=== PATIENT | female | born 1945 | race Caucasian/White ===

== ENCOUNTER 2023-06-17 10:55 | Outpatient (REF) | payer MEDICARE, OTHER, SELFPAY ==
--- NOTE | ~2023-06-17 | MR_ITS ---
EXAMINATION: INCOMPLETE MR BRAIN WITHOUT CONTRAST CLINICAL INFORMATION: Dementia. COMPARISON: None. TECHNIQUE: Multiplanar, multisequence imaging of the brain was performed without contrast. No coronal T2 FLAIR imaging acquired. Patient became restless and could not finish the study. Limited examination with motion artifacts. FINDINGS: No diffusion abnormalities are identified to suggest an acute infarct. No mass effect or midline shift is seen. Moderate to severe diffuse parenchymal volume loss noted, particularly affecting the frontoparietal lobes. Ex vacuo dilatation of the ventricles evident as well. Mild chronic white matter microangiopathic changes noted. No extra-axial fluid collections are seen. The brainstem and cerebellum are normal. The gradient refocused acquisition demonstrates no pathologic magnetic susceptibility artifact to indicate underlying acute or chronic blood products. The craniovertebral junction, marrow signal, and midline structures are normal. The major intracranial flow voids at the level of the [place] are preserved. The dural venous sinus flow voids are maintained. The mastoid air cells and paranasal sinuses are well aerated. MR/MR head/brain wo con IMPRESSION: Moderate diffuse parenchymal volume loss, particularly affecting the temporoparietal lobes, with mild chronic white matter microangiopathy. No acute process.
== END 2023-06-17 10:56 | disposition home or self-care (01) ==
LOC: HO.MRI 10:55
PROVIDERS: Visit Provider Psychiatry & Neurology Neurology
DX: G30.9 Alzheimer's disease, unspecified (principal)
CPT/HCPCS: 70551

== ENCOUNTER 2025-05-29 15:38 | Outpatient (AMB) | payer MEDICARE, OTHER, SELFPAY ==
--- NOTE | 2025-05-29 15:42 | A.OFFVIS_ITS ---
Intake Visit Reasons: 6 mnts f/u Allergies No Known Allergies Allergy (Verified 05/23/25 09:24) Medication List - Last Reconciled 05/29/25 by Justin Maciel MD atorvastatin 10 mg PO DAILY donepezil 10 mg PO BEDTIME memantine 10 mg PO BID quetiapine 25 mg PO DAILY sertraline 50 mg PO DAILY HPI Comments Details: 79 years old left-handed woman with probably Alzheimer type dementia. She started having short-term memory problems around 2009. They consulted [facility] and [facility] in [place] where she was going until 2022 when I saw her. Apparently she participated in her dementia trial for few years. Details were not known to me. Over the years, her situation worsened. She was primarily cared by her . [facility] Medical History (Updated 05/29/25 @ 15:58 by Justin Maciel MD) Alzheimer dementia Severe dementia Anxiety Review of Systems Const Details: Constitutional:?No fever, chills, fatigue, weight loss, or night sweats. HEENT:?No headache, vision changes, hearing loss, nasal congestion, sore throat. Neurological:? Forgetfulness Psychiatric:?No anxiety, depression, mood swings, sleep disturbance, or hallucinations. Endocrine:?No heat/cold intolerance, polydipsia, polyuria, or hair/skin changes. Hematologic/Lymphatic:?No easy bruising, bleeding, or lymphadenopathy. Integumentary (Skin):?No rash, lesions, itching, or color changes. ? Physical Exam Neuro Other: Mental Status: She is alert and awake with decreased spontaneity and fluency of speech. She frequently repeated what I said instead of answering the question. When asked about orientation questions, she did not know the year, month, date or her location. She identified her as her brother. Cranial Nerves: CN II: Visual roland full to confrontation, visual acuity intact. CN III, IV, : Pupils equal, round, reactive to light and accommodation. Extraocular movements are normal. CN V: Facial sensation is normal. CN VII: Facial movements symmetrical. CN VIII: Hearing intact to bedside conversation is normal. CN IX, X: Palate elevates symmetrically. CN XI: Shoulder shrug and head turn symmetrical. CN XII: Tongue midline without atrophy or fasciculations. Extrapyramidal: Full facial expressions and blinking. No rigidity. Movements are appropriate with no tremor or abnormality. Speech: Normal; no dysarthria or tremor. Assessment & Plan Assessment & Plan (1) Alzheimer dementia: Comment: MRI brain WO at [facility] in May 2023: Mod to severe PT atrophy MRI brain WO at [facility] in [place] in 2013: Mild gen atrophy (reported though I don't see much atrophy), minimal MVD PET scan at [facility] in 2016: No report provided. CT part did not reveal much atrophy. Code(s): G30.9 - Alzheimer's disease, unspecified; F02.80 - Dementia in other diseases classified elsewhere, unspecified severity, without behavioral disturbance, psychotic disturbance, mood disturbance, and anxiety Category: Medical Qualifiers: Dementia severity: moderate Dementia behavioral or psychological symptom: with anxiety Alzheimer's disease onset: early onset Qualified Code(s): G30.0 - Alzheimer's disease with early onset; F02.B4 - Dementia in other diseases classified elsewhere, moderate, with anxiety Plan Impression: Moderately to severe likely Alzheimer type dementia, primarily cared by her . Rec: a: Donepezil 10mg a day b: Memantine 10mg bid c: Sertraline 50mg a day d: Quetiapine 25mg a day PRN for behavioral symptoms, which she has not taken lately Medications: New donepezil 10 mg PO BEDTIME 90 tabs 1RF sertraline 50 mg PO DAILY 90 tabs 1RF memantine 10 mg PO BID 180 tabs 1RF Coding Level of Care Code Tele Est Pt Level 4 (35910) Diagnoses Moderate early onset Alzheimer's dementia with anxiety G30.0; F02.B4 Dementia severity: moderate Dementia behavioral or psychological symptom: with anxiety Alzheimer's disease onset: early onset
--- OUTSIDE RECORDS SUMMARY | 2025-05-29 16:14 | XMS_ITS | Clinical Summary ---
Author Organization [facility] Address [address] [place] [phone] Phone Care Team Providers Care Ethylbenzene Oxidizer Name Role Phone Angie Moreau MD Primary Care Pr ovider Allergies Active Allergy Reactions Criticality Noted Date Comments Sulfa (Sulfonamide Antibiotics) Rash Low 01/17/2014 Pt unsure if she is still allergic Medications calcium carbonate-vitami n D3 (CALCIUM+D) 1,250 mg (500 mg elemental)-200 units per tablet 01/18/20 14 Active MV-MN/FA/VIT K/LYCOP/LUT/COQ1 0 (DAILY MULTIVITAMIN ORAL) 01/18/20 14 Active BORAGE, BORAGO OFFICINALIS, ORAL Take by mouth. Activ e DOCOSAHEXANOIC ACID (DHA ALGAL-900 ORAL) Take by mouth. Active ALPHA LIPOIC ACID, BULK, MISC 600 mg by Miscellaneous route. Active OMEGA-3 FATTY ACIDS/FISH OIL (OMEGA 3 FISH OIL ORAL) Take by mouth. Activ e LEVOCARNITINE TARTRATE (CARNITINE, TARTRATE, ORAL) Take by mouth. Active vitamin E 400 unit Cap Take by mouth daily. Active atorvastatin (LIPITOR) 10 MG tablet Take 10 mg by mouth daily. Active FOLIC ACID ORAL Take by mouth. Active ascorbic acid, vitamin C, (VITAMIN C) 500 MG tablet Take 500 mg by mouth daily. Active cholecalciferol, vitamin D3, (VITAMIN D3 ORAL) Take 1 tablet by mouth daily. Active b complex vitamins capsule Take 1 capsule by mouth daily. Active memantine (NAMENDA) 10 MG tablet TAKE 1 TABLET BY MOUTH TWICE A DAY 180 tablet 3 04/04/20 23 Active escitalopram oxalate (LEXAPRO) 10 MG tablet TAKE 1 TABLET BY MOUTH EVERY DAY 90 tablet 1 04/04/20 23 Active donepeziL (ARICEPT) 10 MG tablet TAKE 1 TABLET BY MOUTH EVERYDAY AT BEDTIME 90 tablet 1 09/27/20 23 Active Active Problems Problem Noted Date Diagnosed Date Late onset Alzheimer's disea se without behavioral disturbance 03/17/2018 Osteopenia 01/14/2016 Memory impairment 01/17/2014 Overview (12/20/2014): Memory impairment Family History Medical History Relation Comments Uncoded Family History Mother Memory im pairment Uncoded Family History Sister Memory im pairment Relation Status Comments Mother Sister Social History Tobacco Use Types Packs/Day Years Used Date Smoking Tobacco: Never Smokeless Tobacco: Never Education Answer Date Recorded Are you interested in more education? Not on jayme e 02/25/2023 Are you concerned about learning? Not on file 02/25/2023 No 02/25/2023 No 02/25/2023 Digital Access Answer Date Recorded No 03/27/2023 No 03/27/2023 No 03/27/2023 Reliable internet access at home? Not on file 03/27/2023 Device with a working camera? Not on file Comments Unknown Sex and Gender Information Value Date Recorded Sex Assigned at Not on file Legal Sex Female 3:16 PM EDT Gender Identity Not on file Sexual Orientation Not on file Last Filed Vital Signs Vital Sign Reading Time Taken Comments Blood Pressure 124/65 12/30/2021 2:59 PM EST Pulse 66 12/30/2021 2:59 PM EST Temperature 36.7 C (98 F) 12/30/2021 2:59 PM EST Respiratory Rate 16 12/30/2021 2:59 PM EST Oxygen Saturation 97% 12/30/2021 2:59 PM EST Inhaled Oxygen Concentration - - Weight 64.4 kg (142 lb) 12/30/2021 2:59 PM EST Height 160 cm (5' 3 ) 03/16/2021 2:12 PM EDT Body Mass Index 25.15 03/16/2021 2:12 PM EDT Plan of Treatment Health Maintenance Due Date Last Done Comments LIPID PANEL 1945 DEPRESSION SCREENING 1958 HEPATITIS C SCREENING 1964 ZOSTER VACCINES (2 of 3) 12/26/2010 10/31/2010, 07/02 OSTEOPOROSIS SCREENING INITIAL (ONE-TIME) 2011 Adult Td,Tdap Booster 07/24/2020 07/24/2010, 005 RSV VACCINE (1 - 1-dose 75+ series) 2021 COVID-19 VACCINE ( - season) 2024 02/24/2022, 08/19/2021, 02/16/2021, Additional history exists PNEUMOCOCCAL VACCINES (50+ years) Completed 09/12/2020, 06/29/2012 SMOKING STATUS SCREENING (Once After 26 Yrs) Completed 12/30/2021 HEPATITIS A VACCINES Aged Out No long er eligible based on patient's age to complete this topic HIB VACCINES Aged Out No longer eligi ble based on patient's age to complete this topic MENINGOCOCCAL VACCINES (ACWY) Aged Out No longer eligible based on patient's age to complete this topic MENINGOCOCCAL VACCINES (B) Aged Out N o longer eligible based on patient's age to complete this topic Medical Devices Not on file Insurance MEDICARE PART A & B Member Subscriber Plan / Payer (Ef fective 2011-Present) Name:Talisha Pennington Member ID:[id number] Relation to Subscriber:Self Name:Talisha Pennington Subscriber ID:[id number] Payer ID:[id number] Group ID:Not on file Type:Medicare [facility] [employer] [facility] [address] [facility] [place] [phone] [employer] MEDICARE SUPPLEMENT MEDICARE PART A & B [facility] [place] [phone] [employer] MEDICARE SUPPLEMENT MEDICARE PART A & B [facility] MEDICARE SUPPLEMENT MEDICARE PART A & B [employer] MEDICARE SUPPLEMENT MEDICARE PART A & B [facility] MEDICARE SUPPLEMENT MEDICARE PART A & B [employer] MED[employer] SUPPLEMENT MEDICARE PART A & B [employer] [place] [id number] MEDICARE PART A & B [facility] MEDICARE SUPPLEMENT Care Teams Ethylbenzene Oxidizer Relationship Specialty Start Date End Date Angie Moreau MD [address] [place] [address] [place] [id number] PCP - General Internal Medicine 06/20/14 Additional Source Comments The information contained in this document represents components of the legal health record. It is not the complete legal health record.[facility]
--- OUTSIDE RECORDS SUMMARY | 2025-05-29 16:14 | XMS_ITS ---
Author Name [facility] Organization Unknown History of Medication Use Medication Directions Dispensed Refills Start Date End Date Stat us benzonatate (TESSALON) 200 MG capsule Take 1 capsule (200 mg total) by mouth 3 (three) times a day as needed for cough. 11/16/2024 active proMETHAZINE-dextrome thorphan (proMETHAZINE-DM) 6.25-15 MG/5ML syrup Take 5 mL by mouth 4 times daily (every 6 hours) as needed for cough. 11/16/2024 active ascorbic acid (VITAMIN C) 500 MG tablet Take 500 mg by mouth daily. active memantine (NAMENDA) 10 MG tablet Take 10 mg by mouth 2 times a day. active sertraline (ZOLOFT) 50 MG tablet Take 50 mg by mouth. active vitamin B complex (b complex vitamins) capsule Take 1 capsule by mouth daily. active Allergies Allergen Reaction Severity Comment Documented Date Source Statu s SULFA ANTIBIOTICS RASH/DERMATITI S Pt unsure if she is still allergic 01/17/2014 CCT active Problems Problem Status Onset Date Problem Type Date of Resoluti on Source Acute bronchitis, unspecified organism active EncounterDiagnosisAct CCT Encounters Encounter Type Encounter Reason Primary Diagnosis Location Date Ambulatory [facility]24 Care Team Organization Name Specialty Phone Email Start Date End [facility] 12/06/2024 01/16/2025 [facility]16[facility]2024 [facility] NATASHA GAMBOA Primary Care 09/07/2022 06/18/2024
--- OUTSIDE RECORDS SUMMARY | 2025-05-29 16:15 | XMS_ITS | Clinical Summary ---
Author Organization [facility] Address [address] [place] [address] Care Team Providers Care Senior Technical Project Manager Name Role Phone Pcp, No Primary Care Provider Unavailabl e Allergies Active Allergy Reactions Criticality Noted Date Comments Sulfa Antibiotics Rash/Dermatitis Low 01/17/2014 Pt unsure if she is still allergic Medications ascorbic acid (VITAMIN C) 500 MG tablet Take 500 mg by mouth daily. Active atorvastatin (LIPITOR) 10 MG tablet Take 10 mg by mouth daily. 05/16/2024 Active vitamin B complex (b complex vitamins) capsule Take 1 capsule by mouth daily. Active donepezil (ARICEPT) 10 MG tablet TAKE 1 TABLET BY MOUTH EVERY DAY AT BEDTIME FOR 90 DAYS Active memantine (NAMENDA) 10 MG tablet Take 10 mg by mouth 2 times a day. Active QUEtiapine (SEROquel) 25 MG tablet 08/25/2024 Active sertraline (ZOLOFT) 50 MG tablet Take 50 mg by mouth. Active benzonatate (TESSALON) 200 MG capsuleIndicatio ns:Acute bronchitis, unspecified organism Take 1 capsule (200 mg total) by mouth 3 (three) times a day as needed for cough. 20 capsule 11/16/2024 Active proMETHAZINE-dex tromethorphan (proMETHAZINE-DM ) 6.25-15 MG/5ML syrupIndications :Acute bronchitis, unspecified organism Take 5 mL by mouth 4 times daily (every 6 hours) as needed for cough. 120 mL 11/16/2024 Active Active Problems No known active problems Social History Tobacco Use Types Packs/Day Years Used Date Smoking Tobacco: Never Assessed Comments Unknown Sex and Gender Information Value Date Recorded Sex Assigned at Not on file Legal Sex Female 4:20 PM EST Gender Identity Not on file Sexual Orientation Not on file Last Filed Vital Signs Vital Sign Reading Time Taken Comments Blood Pressure 116/63 11/16/2024 4:30 PM EST Pulse 70 11/16/2024 4:30 PM EST Temperature 36.6 C (97.9 F) 11/16/2024 4:30 PM EST Respiratory Rate 15 11/16/2024 4:30 PM EST Oxygen Saturation 96% 11/16/2024 4:30 PM EST Inhaled Oxygen Concentration - - Weight 68 kg (150 lb) 11/16/2024 4:30 PM EST Height 160 cm (5' 3 ) 11/16/2024 4:30 PM EST Body Mass Index 26.57 11/16/2024 4:30 PM EST Plan of Treatment Health Maintenance Due Date Last Done Comments Hepatitis C Virus Screening 1945 DTaP/Tdap/Td Vaccines (1 - Tdap) 1965 Pneumococcal Vaccines 50+ (1 of 1 - PCV) 1996 Zoster (Shingles) Vaccine (1 of 2) 1996 DXA Bone Density (Females,Ages 65 and older) 2011 RSV Vaccine 60 years and older and Patients (1 - 1-dose 75+ series) 2021 COVID-19 Vaccine ( season) 2024 02/16/2021, 01/26/2021 Influenza Vaccine 05/31/2025 09/01/2020, , 08/09/2019, Additional history exists Hepatitis B Vaccines Aged Out No long er eligible based on patient's age to complete this topic Insurance [place] [id number] MEDICARE PART A & B [facility] MEDICARE Care Teams Senior Technical Project Manager Relationship Specialty Start Date End Date Pcp, No PCP - General General Medicine 11/16/24
--- OUTSIDE RECORDS SUMMARY | 2025-05-29 16:15 | XMS_ITS | Clinical Summary ---
Author Organization [facility] [address] [facility] lding Address [address] [facility] [place] [phone] Phone Care Team Providers Care Mobile Lounge Driver Name Role Phone Angie Moreau MD Primary Care Prov ider Allergies Active Allergy Reactions Criticality Noted Date Comments Sulfa (Sulfonamide Antibiotics) Rash Low 01/17/2014 Pt unsure if she is still allergic Medications ALPHA LIPOIC ACID ORAL Take by mouth. Activ e calcium carbonate/vitam in D3 (CALCIUM CARBONATE-VITAM IN D PO) Take by mouth. One pill daily Active DOCOSAHEXAENOIC ACID ORAL Take by mouth. Activ e donepeziL (ARICEPT) 10 mg tablet TAKE 1 TABLET BY MOUTH EVERY DAY AT BEDTIME FOR 90 DAYS Active KRILL OIL ORAL Take by mouth. Active memantine (NAMENDA) 10 mg tablet Take 1 tablet (10 mg total) by mouth 2 (two) times a day. for 90 days Active MULTIVITAMIN ORAL 1 Tab daily. 7 Active QUEtiapine (SEROquel) 25 mg tablet 4 Active sertraline (ZOLOFT) 50 mg tablet Take 1 tablet (50 mg total) by mouth 1 (one) time each day. for 90 days Active TURMERIC ORAL Take by mouth. A ctive atorvastatin (LIPITOR) 10 mg tablet TAKE 1 TABLET BY MOUTH EVERY DAY 90 tablet 1 5 Active diclofenac (VOLTAREN) 1 % topical gel Apply 2 g topically 3 (three) times a day. 180 g 5 06/15/20 25 Active Active Problems Problem Noted Date Diagnosed Date Sick sinus syndrome [place] [place] [facility] [place] 0 04/09/2020 Overview (10/14/2024): Dual chamber pacemaker placed Obstructive sleep apnea 12/27/2018 Overview (10/14/2024): [facility] [place] Polysomnogram: Date 12/26/2018; SE 56%; SM 59%; REM 19%; RDI 18 (AHI 13), REM (RDI 26 - AHI 23), Central apneas 1; Obstructive apneas 30; Mixed apneas 0; hypopneas 28; RERAs 25; average oxygen saturation 92% (lowest 82% - without saturations <88% for 5% or more of study); PLMs 8. - Obstructive Sleep Apnea - mild overall and moderate in REM; mostly obstructive apneas with hypopneas; without sleep related hypoventilation by 2019 polysomnogram. - 12/26/2018 Pre-study ESS 13. 4/4 RLS symptoms. 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 - no hx of clotting Pure hypercholesterolemia 09/16/2006 Encounters Date Type Department Care Team Description 05/16/2025 Telephone [facility] [address] [facility] [place] [address] Jax Self Medication Problem 05/14/2025 3:30 PM EDT Office Visit [facility] [address] [place] [phone] Ubaldo Costa PA Phlebitis (Primary Dx); Edema of left lower extremity 05/14/2025 11:15 AM EDT - 05/14/2025 11:59 PM EDT Hospital Encounter Ultrasound - [address] [address] Edema of left lower extremity Discharge Disposition: Home or Self Care 05/14/2025 Telephone Adult Medicine - [place] [address] [place] [address] Angie Marrero MD Knee Pain 05/11/2025 2:10 AM EDT Ancillary Procedure [facility] [address] [place] [phone] 04/05/2025 Telephone [facility] [address] [facility] [address] [place] [address] Everardo Rivera MD Reschedule 03/04/2025 3:30 PM EDT Office Visit Adult Medicine - [place] [address] [place] [address] Angie Marrero MD Pure hypercholesterolemia (Primary Dx); Anxiety, generalized; Alzheimer's dementia with mood disturbance, unspecified dementia severity, unspecified timing of dementia onset ([facility] V24, [facility] V28) 03/04/2025 Telephone Internal Medicine - [address] [phone] Marivel Rao [place] Medicare Annual Wellness Visit Subsequent (AWV DUE 2024) from Last 3 Months Immunizations Name Administration Dates Next Due DTaP, Unspecified 04/02/2005 H1N1 Inj Preservative Free 11/07/2009 Influenza trivalent, 0.5mL ( Fluad) 65yo and older 09/01/2020,08/09/2019,08/03/2018,08/17,09/06/2016,08/02/2015,07/01/2014 ,07/31/2012,07/19/2012,07/20/2011,07/02,11/07/2009,09/30/2006, 5 Influenza trivalent, 0.5mL, preservative free (Fluarix; FluLaval; Fluzone) ages 6mo and older (Afluria) 3 years and older 09/04/2018,07/31/2013,08/20/2008,09/05 Pfizer SARS-CoV-2 COVID-19, mRNA, LNP-S, preservative free 02/16/2021,01/26/2021 Pneumococcal conjugate 13 va lent (Prevnar 13, PCV13) 2mo and older 09/12/2020,10/31/2011 Pneumococcal polysaccharide 23 valent (Pneumovax 23) 2yo and older 06/29/2012 Td Tetanus diptheria (Tdvax) 7yo and older 04/02/2005 Tdap Tetanus diptheria acell ular pertussis (Boostrix; Adacel) 7yo and older 07/24/2010 Zoster Live 10/31/2010,07/29/2010 Surgical History Surgery Date Site/Laterality Comments OTHER SURGICAL HISTORY 2001 PROCEDURE: ND DILATION & CURETTAGE DX&/THER NONOBSTETRIC HERNIA REPAIR PROCEDURE: HISTORICAL HERNIA REPAIR/ING TONSILLECTOMY PROCEDURE: HISTORICAL TONSILLECTOMY COLONOSCOPY 12/2005 PROCEDURE: HISTORICAL COLONOSCOPY; COMMENT: tics; repeat in ten yrs OTHER SURGICAL HISTORY 01/02/16 PROCEDURE: COLON CA SCRN NOT HI RSK IND; COMMENT: tics; would not repeat OTHER SURGICAL HISTORY PROCEDURE: HISTORICAL MELANOMA Medical History Medical History Date Comments Pure hypercholesterolemia DX:Pur e hypercholesterolemia Anxiety state, unspecified DX:An xiety state, unspecified Other specified personal his tory presenting hazards to health(V15.89) DX:Other specifie d personal history presenting hazards to health(V15.89); COMMENT: squamous cell Actinic keratosis, hx of DX:Acti óscar keratosis, hx of Malignant neoplasm of skin of face DX:Malignant neoplasm of skin of face History of squamous cell carcinoma 08/05/2011 DX:History of squamous cell carcinoma; COMMENT: SCC 08/10 left deltoid (well differentiated, invasive, keratoacanthoma type) History of squamous cell car cinoma of skin 08/05/2011 DX:History of squamous cell carcinoma of skin; COMMENT: SCC 08/10 left deltoid (well differentiated, invasive, keratoacanthoma type) Family History Medical History Relation Name Comments Other: DVT- prothrombin gene Daughter Heart attack Father Hypertension Father Hypertension Mother Breast cancer Sister 1 Hypertension Sister 1 Other cancer Sister 2 Hx @ 29 yo for cervical CA Relation Name Status Comments Brother Alive Daughter Father Maternal Grandfather Maternal Grandmother Mother Paternal Grandfather Paternal Grandmother Sister 1 Alive Sister 2 Sister 3 Alive Sister 4 Alive Sister 5 Alive Sister 6 Alive Sister 7 Alive Social History Tobacco Use Types Packs/Day Years Used Date Smoking Tobacco: Never Smokeless Tobacco: Never Alcohol Use Standard Drinks/Week Comments Yes 0 (1 standard drink = 0.6 oz pur e alcohol) Comments No Sex and Gender Information Value Date Recorded Sex Assigned at Not on file Legal Sex Female 12:34 AM EST Gender Identity Not on file Sexual Orientation Not on file Obstetrics History Para Term AB IAB SAB Ectopic Multiple Livin g Live Births 2 2 2 2 Date Outcome GA Total Labor Labor/2nd/3rd Weight Sex Type Anes PTL Lisandra A1 A5 Name Clin Term Term Last Filed Vital Signs Vital Sign Reading Time Taken Comments Blood Pressure 112/78 05/14/2025 3:44 PM EDT Pulse 60 03/04/2025 3:32 PM EDT Temperature 36.7 C (98.1 F) 05/14/2025 3:44 PM EDT Respiratory Rate - - Oxygen Saturation - - Inhaled Oxygen Concentration - - Weight 76.2 kg (168 lb) 03/04/2025 3:32 PM EDT Height 160 cm (5' 3 ) 03/04/2025 3:32 PM EDT Body Mass Index 29.76 03/04/2025 3:32 PM EDT Plan of Treatment Upcoming Encounters Date Type Department Care Team (Late st Contact Info) Description 05/31/2025 2:45 PM EDT Office Visit Adult Medicine - [place] [address] [place] [phone] Deyvi Stanley PA [address] [place] [address] 07/11/2025 1:00 PM EDT Appointment Radiology Department - [address] [phone] 08/19/2025 2:00 PM EDT Ancillary Procedure [facility] [address] [facility] [address] [place] [phone] 09/18/2025 11:00 AM EST Office Visit Adult Medicine - [place] [address] [place] [facility] [place] [phone] Angie Moreau MD [address] [place] [address] Health Maintenance Due Date Last Done Comments Zoster Vaccines (1 of 2) 12/26/2010 10/31/2010, 07/02 DTaP,Tdap,and Td Vaccines (4 - Td or Tdap) 07/24/2020 07/24/2010, 04/02/2005, 04/02/2005 RSV Immunization Adult Patients (1 - 1-dose 75+ series) 2021 Falls Risk Assessment 10/09/2022 Medicare Annual Wellness Visit 10/09/2022 Social Influencers of Health Screening 10/09/2022 Depression Screening 10/31/2024 COVID-19 Vaccine (8 - Pfizer risk 2023- season) 2025 09/01/2024, 08/31/2023, 07/28/2022, Additional history exists Influenza Vaccine (#1) 2025 , 09/01/2023, 08/31/2023, Additional history exists Osteoporosis Screening (Bone Density Screening) 06/13/2029 06/13/2019, 01/06/2017 Cholesterol Screening (Lipid Panel) 08/27/2029 08/27/2024, 08/27/2024 Hepatitis C Screening Completed 06/26/2012 Pneumococcal Vaccine: 50+ Years Completed 09/12/2020, 06/29/2012, 10/31/2011, Additional history exists HIB Vaccines Aged Out No longer eligi ble based on patient's age to complete this topic HPV Vaccines Aged Out No longer eligi ble based on patient's age to complete this topic Hepatitis A Vaccines Aged Out No long er eligible based on patient's age to complete this topic Hepatitis B Vaccines Aged Out No long er eligible based on patient's age to complete this topic IPV Vaccines Aged Out No longer eligi ble based on patient's age to complete this topic MMR Vaccines Aged Out No longer eligi ble based on patient's age to complete this topic Meningococcal ACWY Vaccine Aged Out N o longer eligible based on patient's age to complete this topic Meningococcal B Vaccine Aged Out No l onger eligible based on patient's age to complete this topic RSV Immunization Patients Under 20 months Aged Out No longer eligible based on patient's age to complete this topic Varicella Vaccines Aged Out No longer eligible based on patient's age to complete this topic Medical Devices Implanted Type Area Coating Machine Feeder Device Identifier Shelf Expiration Date Model / Serial / Lot Abbt-St 2272 Assurity Mri(Tm) [id number] Implanted:07/2020 (Quantity not on file) Cardiac Pacemaker [employer]- [employer] 2272 ASSURITY MRI(TM) / [id number] / Procedures Procedure Name Priority Date/Time Associated Diagnosis Comments VAS US DUPLEX LOWER EXT VENOUS LEFT STAT 05/14/2025 4:29 PM EDT Edema of left lower extremity CARDIAC DEVICE CHECK- REMOTE- MURJ Routine 05/11/2025 2:08 AM EDT LIPID PANEL Routine 08/27/2024 DXA BONE DENSITY STUDY 1+ SITS AXIAL SKEL Routine 06/13/2019 12:26 PM EDT Other specified disorders of bone density and structure, unspecified site HEPATITIS C SCREENING Routine 06/26/2012 from Last 3 Months or Most Recently Relevant to Health Maintenance Results * Vascular US duplex lower extremity venous left (05/14/2025 4:29 PM EDT) Anatomical Region Laterality Modality Vascular, Abdomen Ultrasound 05/14/2025 4:54 PM EDT Impressions 05/14/2025 4:55 PM EDT No evidence of deep venous thrombosis in the left lower extremity. POS - [id number] -------- FINAL REPORT -------- Dictated By: Sharifa Taylor Dictated Date: 05/14/2025 16:54 ET Assigned Physician: Sharifa Taylor Reviewed and Electronically Signed By: Sharifa Taylor Signed Date: 05/14/2025 16:55 ET Workstation ID: [id number] Transcribed By: Self Edit Transcribed Date: 05/14/2025 16:54 ET Narrative 05/14/2025 4:55 PM EDT EXAM: Limited extremity veins ultrasound HISTORY: Left lower extremity edema. COMPARISON: None FINDINGS: Duplex Doppler scanning of the deep venous system of the left lower extremity is performed. Scanning is performed from the proximal common femoral vein and greater saphenous confluence through the popliteal vein. All veins of the deep venous system are normally compressible. Normal Doppler flow is demonstrated within them. Augmentation maneuvers are normal. Calf veins are normally compressible. No popliteal cyst. Procedure Note Sharifa Taylor MD - 05/14/2025 EXAM: Limited extremity veins ultrasound HISTORY: Left lower extremity edema. COMPARISON: None FINDINGS: Duplex Doppler scanning of the deep venous system of the left lowerextremity is performed. Scanning is performed from the proximal commonfemoral vein and greater saphenous confluence through the popliteal vein. All veins of the deep venous system are normally compressible. NormalDoppler flow is demonstrated within them. Augmentation maneuvers arenormal. Calf veins are normally compressible. No popliteal cyst. IMPRESSION: No evidence of deep venous thrombosis in the left lower extremity. POS - [id number] -------- FINAL REPORT -------- Dictated By: Sharifa Taylor Dictated Date: 05/14/2025 16:54 ET Assigned Physician: Sharifa Taylor Reviewed and Electronically Signed By: Sharifa Taylor Signed Date: 05/14/2025 16:55 ET Workstation ID: [id number] Transcribed By: Self Edit Transcribed Date: 05/14/2025 16:54 ET Ubaldo CROWE CV VASCULAR PROCEDURES Fin al Result * Cardiac device check - Remote- MURJ (05/11/2025 2:08 AM EDT) [facility] Date Time Interrogation Session [id number] CV DEVICE CHECK Type Interrogation Session Remote Scheduled CV DEVICE CHECK Implantable Pulse Generator Coating Machine Feeder [employer] CV DEVICE CHECK Implantable Pulse Generator Type IPG CV DEVICE CHECK Implantable Pulse Generator Model 2272 Assurity MRI(TM) CV DEVICE CHECK Implantable Pulse Generator Serial Number [id number] CV DEVICE CHECK Implantable Pulse Generator Implant Date [id number] CV DEVICE CHECK Battery Remaining Percentage 56.00 CV DEVICE CHECK Battery Remaining Longevity 70.0 CV DEVICE CHECK Battery Voltage 3.010 CV D EVICE CHECK Battery BELL ATTENDANT Trigger 2.600 CV DEVICE CHECK Battery Status Middle of Service CV DEVICE CHECK Jacobo Statistic RA Percent Paced 40.00 CV DEVICE CHECK Jacobo Statistic RV Percent Paced 1.00 CV DEVICE CHECK Atrial Tachy Statistic AT/AF [place] Percent 0.00 CV DEVICE CHECK Lead Channel Sensing Intrinsic Amplitude 5.000 CV DEVICE CHECK Lead Channel Setting Sensing Sensitivity 0.50 CV DEVICE CHECK Lead Channel Impedance Value 390 CV DEVICE CHECK Lead Channel Pacing Threshold Amplitude 0.625 CV DEVICE CHECK Lead Channel Pacing Threshold Pulse Width 0.5 CV DEVICE CHECK Lead Channel RA Pacing Threshold Date 2025-05-07 CV DEVICE CHECK Lead Channel Setting Pacing Amplitude 1.625 CV DEVICE CHECK Lead Channel Setting Pacing Pulse Width 0.5 CV DEVICE CHECK Lead Channel Sensing Intrinsic Amplitude 12.000 CV DEVICE CHECK Lead Channel Setting Sensing Sensitivity 2.00 CV DEVICE CHECK Lead Channel Impedance Value 540 CV DEVICE CHECK Lead Channel Pacing Threshold Amplitude 0.750 CV DEVICE CHECK Lead Channel Pacing Threshold Pulse Width 0.5 CV DEVICE CHECK Lead Channel RV Pacing Threshold Date 2025-05-07 CV DEVICE CHECK Lead Channel Setting Pacing Amplitude 1.000 CV DEVICE CHECK Lead Channel Setting Pacing Pulse Width 0.5 CV DEVICE CHECK Jacobo Setting Mode (NBG Code) DDD CV DEVICE CHECK Jacobo Setting Lower Rate Limit 60 CV DEVICE CHECK Jacobo Setting AT Mode Switch Rate 180 CV DEVICE CHECK Jacobo Setting Maximum Tracking Rate 130 CV DEVICE CHECK Jacobo Setting Maximum Sensor Rate 130 CV DEVICE CHECK Jacobo Setting PAV Delay 200 CV DEVICE CHECK Jacobo Setting JAMES Delay 150 CV DEVICE CHECK Date of Service 2025-05-17 CV DEVICE CHECK Anatomical Region Laterality Modality Device Interroga tion 05/07/2025 2:00 AM EDT Impressions 05/10/2025 3:53 PM EDT Normal Remote: With Events * Normal Device Function * Events or Alerts: 1 brief run of PAT / 7 beats * Battery: Battery is at 56%, 5.83 yrs * Sensing, impedance and thresholds reviewed * Programmed parameters reviewed * Presenting rhythm reviewed * Heart Rate Histograms reviewed Narrative Procedure Note Everardo Rivera MD - 05/11/2025 IMPRESSION: Normal Remote: With Events * Normal Device Function * Events or Alerts: 1 brief run of PAT / 7 beats * Battery: Battery is at 56%, 5.83 yrs * Sensing, impedance and thresholds reviewed * Programmed parameters reviewed * Presenting rhythm reviewed * Heart Rate Histograms reviewed Everardo Rivera MD CV IMPLANTABLE CARDIAC DEVICE PROCEDURES Final Result * (ABNORMAL) Lipid panel (08/27/2024) LDL/HDL Ratio 2 0 - 4 Triglycerides 91 0 - 150 mg/dL Cholesterol 229(A) 0 - 200 mg/dL HDL 118 >=40 mg/dL LDL Cholesterol 93 0 - 100 mg/dL Blood Venous blood specimen / Unknown Historical Provider LAB BLOOD ORDERABLES Rebecca l Result * DXA BONE DENSITY STUDY 1+ SITS AXIAL SKEL (06/13/2019 12:26 PM EDT) Anatomical Region Laterality Modality Bone Densitometr y 04/17/2019 10:3 8 AM EDT Narrative 06/13/2019 1:19 PM EDT BONE DENSITY Lumbar Spine T-score is -0.9 (SD relative to 20-29 y/o adult) Z-score is +1.3 (SD relative to age matched peers) This is normal by criteria defined by the WHO. Left Hip T-score is -2.2 Z-score is -0.3 This is consistent with osteopenia by criteria defined by the WHO. Comparison exam(s): significant increase in bone density of lumbar spine when compared to most recent bone density examination Confidence level is +/-95%. Impression: Based on the World Health Organization criteria, Talisha Pennington should be classified as having osteopenia. [facility] Department of Internal Medicine recommends using National Osteoporosis Foundation (NOF) guidelines in treatment decisions related to osteoporosis. NOF guidelines suggest considering treatment for postmenopausal women and men aged 50 or older presenting with the following: History of hip or vertebral fracture. T-score less than or equal to -2.5 (DXA) at the femoral neck, total hip, or spine, after appropriate evaluation to exclude secondary causes. Low bone mass (T-score between -1.0 and -2.5 at the femoral neck or spine) AND a 10-year probability of a hip fracture greater than or equal to 3% OR a 10-year probability of a major osteoporosis-related fracture greater than or equal to 20% based on the [place]-adapted WHO algorithm Please note that all treatment decisions require clinical judgment and consideration of individual patient factors, including patient preferences, co-morbidities, previous drug use, risk factors not captured in the FRAX model (e.g., frailty, falls, vitamin D deficiency, increased bone turnover, interval significant decline in bone density) and possible under- or over-estimation of fracture risk by FRAX. Procedure Note Meredith Gonzalez MD - 10/19/2022 BONE DENSITY Lumbar Spine T-score is -0.9 (SD relative to 20-29 y/o adult) Z-score is +1.3 (SD relative to age matched peers) This is normal by criteria defined by the WHO. Left Hip T-score is -2.2 Z-score is -0.3 This is consistent with osteopenia by criteria defined by the WHO. Comparison exam(s): significant increase in bone density of lumbar spinewhen compared to most recent bone density examination Confidence level is +/-95%. Impression: Based on the World Health Organization criteria, Talisha Pennington should beclassified as having osteopenia. [facility] Department of Internal Medicine recommendsusing National Osteoporosis Foundation (NOF) guidelines in treatmentdecisions related to osteoporosis. NOF guidelines suggest consideringtreatment for postmenopausal women and men aged 50 or older presentingwith the following: History of hip or vertebral fracture. T-score less than or equal to -2.5 (DXA) at the femoral neck, total hip,or spine, after appropriate evaluation to exclude secondary causes. Low bone mass (T-score between -1.0 and -2.5 at the femoral neck or spine)AND a 10-year probability of a hip fracture greater than or equal to 3% ORa 10-year probability of a major osteoporosis-related fracture greaterthan or equal to 20% based on the [place]-adapted WHO algorithm Please note that all treatment decisions require clinical judgment andconsideration of individual patient factors, including patientpreferences, co-morbidities, previous drug use, risk factors not capturedin the FRAX model (e.g., frailty, falls, vitamin D deficiency, increasedbone turnover, interval significant decline in bone density) and possibleunder- or over-estimation of fracture risk by FRAX. Deyvi CROWE IMG DXA PROCEDURES Final Resul t * Hepatitis C Screening (06/26/2012) [facility] Hepatitis C Screening ABSTRACTED Historical Provider HEALTH MAINTENANCE Final Result from Last 3 Months or Most Recently Relevant to [place] [phone] MEDICARE [facility] Advance Directives Documents on File Type Date Recorded Patient Review Engineer Expl anation Health Care Decision (hx) 04/10/2020 ZONIA ALLEN DIRECTIVE Care Teams Mobile Lounge Driver Relationship Specialty Start Date End Date Angie Moreau MD [address] [place] [address] [facility] [address] [facility] - General 01/30/20
--- OUTSIDE RECORDS SUMMARY | 2025-05-29 16:15 | XMS_ITS | Patient Health Record ---
Author Organization [facility] f[facility] Herbert Address [address] [address] Care Team Providers Care Fishing Guide Name Role Phone Angie Moreau Primary Care Provide r Ranjit Durand Unavailable [phone] Allergies Allergen (clinical drug ingredient) Drug/Non Drug Allergy documented on EMR Reaction Allergy Type Onset Date Status Substance with sulfonamide structure and antibacterial mechanism of action (substance) Sulfa Antibiotics Unknown Drug Allergy Active Reason For Referral No Information Medications Medication SIG (Take, Route, Frequency, Duration) Notes Start Date End Date Status Atorvastatin Calcium 10 MG 1 tablet Oral ly Once a day Active Donepezil HCl 10 MG 1 tablet at bedtime Orally Once a day Active Memantine HCl 10 MG 1 tablet Orally Once a day Active Sertraline HCl 25 MG 1 tablet Orally Onc e a day Active Immunizations Vaccine Route Administration Date Status Comme nts Influenza Unknown 07/11/2024 Administered Social History Tobacco Use: Social History Observation Description Date Details (start date - stop date) Never Smoker NA - NA Tobacco use other than smoking: Question Answer Notes Are you an other tobacco user? No Tobacco Control (Standard) Question Answer Notes Tobacco use: Nonsmoker Additional Findings: Tobacco non-user Current no nsmoker AUDIT-C (Standard) Question Answer Notes Did you have a drink containing alcohol in the p ast year? No Points 0 Interpretation Negative Problems Problem Type SNOMED Code ICD Code Onset Dates Problem Status W/U Status Risk Notes Problem Tinea unguium (B35.1) Active confirmed Vital Signs Blood pressure diastolic 70 mm Hg 05/20/2025 Height 5 ft 3 in in 05/20/2025 Blood pressure systolic 125 mm Hg 05/20/2025 Weight 160 lbs 05/20/2025 BMI 28.34 kg/m2 05/20/2025 Procedures Procedure Date Ordered Date Performed Result Body Sit e 01920-JYPCSGN NAIL, 6 OR MORE 06/26/2024 N/A [id number] NAIL, 6 OR MORE 11/26/2024 N/A [id number] NAIL, 6 OR MORE 05/20/2025 N/A Encounters Encounter Location Date Provider Diagnosis [facility] [address] [place] [address] 06/26/2024 Ranjit Cardozo Tinea unguium B35.1 ; Pain in right toe(s) M79.674 and Pain in left toe(s) M79.[address] [address] 11/26/2024 Ranjit Cardozo Tinea unguium B35.1 ; Pain in right toe(s) M79.674 and Pain in left toe(s) M79.[address] [address] 05/20/2025 Ranjit Cardozo Tinea unguium B35.1 ; Pain in right toe(s) M79.674 and Pain in left toe(s) M79.[address] [address] 02/20/2025 Ranjit Cardozo Assessments Encounter Date Diagnosis (ICD Code) Assessment Notes Treatment Notes Treatment Clinical Notes Section Notes 06/26/2024 Tinea unguium (ICD-10 - B35.1) 06/26/2024 Pain in right toe(s) (ICD-10 - M79.674) 11/26/2024 Tinea unguium (ICD-10 - B35.1) 11/26/2024 Pain in right toe(s) (ICD-10 - M79.674) 05/20/2025 Tinea unguium (ICD-10 - B35.1) 05/20/2025 Pain in right toe(s) (ICD-10 - M79.674) 05/20/2025 Pain in left toe(s) (ICD-10 - M79.675) 11/26/2024 Pain in left toe(s) (ICD-10 - M79.675) 06/26/2024 Pain in left toe(s) (ICD-10 - M79.675) Plan Of Treatment Pending Test Test Name Order Date [id number] NAIL, 6 OR MORE 10/21/2023 [id number] NAIL, 6 OR MORE 02/24/2024 [id number] NAIL, 6 OR MORE 06/26/2024 [id number] NAIL, 6 OR MORE 11/26/2024 [id number] NAIL, 6 OR MORE 05/20/2025 Next Appt Details Provider Name:Ranjit Doll Juliane , 08/01/2025 03:45:00 PM, [address], [address], [place], [address], Insurance Providers Payer Name Payer Address Payer Phone Subscriber Number Group Number Insured Name Patient Relationship to Insured Coverage Start Date Coverage End Date Medicare National Govt [facility] [address] [place] [address] [id number] Gorge Talisha Self - patient is the insured [employer] ([facility] [address] [place] [address] [id number] Gorge Talisha Self - patient is the insured Medical (General) History Medical History History ICD Code Dementia Heart disease Measles Chicken pox Pacemaker CAD Surgical History Surgery Date(Month/Year) hernia cardiac pacemeker 2018
== END 2025-05-29 16:14 | disposition home or self-care (01) ==
LOC: HO.HSM 15:39
PROVIDERS: Visit Provider Psychiatry & Neurology Neurology
DX: G30.0 Alzheimer's disease with early onset (principal); F02.B4 Dementia in other diseases classified elsewhere, moderate, with anxiety
CPT/HCPCS: 99214

== ENCOUNTER → 2025-05-29 15:38 | Outpatient (BNVA) | payer MEDICARE, OTHER, SELFPAY | PROVIDERS: Visit Provider Psychiatry & Neurology Neurology | DX: G30.0 Alzheimer's disease with early onset (principal); F02.B4 Dementia in other diseases classified elsewhere, moderate, with anxiety; Z79.899 Other long term (current) drug therapy | CPT/HCPCS: 99212 ==